=== PATIENT | male | born 1980 | race Caucasian/White ===

== ENCOUNTER 2022-09-22 07:32 | Emergency (ER) | payer OTHER, MEDICAID, SELFPAY ==
[2022-09-22 07:35] VITALS: BP 189/123; PULSE 89; O2SAT 92
[2022-09-22 07:37] VITALS: BP 189/123; PULSE 88; RESP 16; TEMP 36.7; O2SAT 93; BMI 19.1
--- NOTE | 2022-09-22 07:39 | DI.RAD.S_ITS ---
PROCEDURE: XR CHEST 1V INDICATIONS: SOB TECHNIQUE: One view of the chest was acquired. COMPARISON: None. FINDINGS: Surgical changes and devices: None. Lungs and pleura: Lungs are clear. No pleural effusions or pneumothorax. Mediastinum: Mediastinal contours appear normal. Heart size is normal. Bones and chest wall: No suspicious bony lesions. Overlying soft tissues appear unremarkable. IMPRESSION: No acute cardiopulmonary pathology. Dictated by: Víctor Griffin M.D. on 09/22/2022 at 8:07 Approved by: Víctor Griffin M.D. on 09/22/2022 at 8:08
--- NOTE | 2022-09-22 07:43 | ED_ITS ---
HPI - General Adult General Chief complaint: Shortness of Breath/Dyspnea Stated complaint: trouble breathing Time Seen by Provider: 09/22/22 07:35 Source: patient Mode of arrival: EMS Limitations: no limitations History of Present Illness HPI narrative: Patient is a 42-year-old male who was sent over for evaluation of shortness of breath. Patient states that he is had shortness of breath for greater than 1 month although he does feel like it has been worsening. No cough. No fevers. No chest pain. No prior underlying lung pathology diagnosis. He stated that he went to the methadone clinic in order to get checked in when he mentioned the shortness of breath and that is why he was sent here. He did smoke fentanyl this morning. Related Data Previous Rx's Medication Instructions Recorded albuterol sulfate 90 mcg/actuation 2 puff inhalation Q4-6H PRN 09/22/22 aerosol inhaler (Proventil HFA) shortness of breath or wheezing #8.5 grams Allergies Allergy/AdvReac Type Severity Reaction Status Date / Time No Known Drug Allergies Allergy Verified 09/22/22 07:41 Review of Systems Constitutional Constitutional: Reports system reviewed and no additional complaints, except as documented ENT Ears, Nose, Mouth, and Throat: Reports system reviewed and no additional complaints, except as documented Cardiovascular Cardiovascular: Reports system reviewed and no additional complaints, except as documented Respiratory Respiratory: Reports system reviewed and no additional complaints, except as documented Integumentary/Breasts Skin/Breast: Reports system reviewed and no additional complaints, except as documented Hematologic/Lymphatic On Anticoagulants: No Patient History Social History Smoking Status: Current every day smoker Smoking Status: Current every day smoker tobacco type: cigarettes Substance Use Type: opiates Exam Initial Vital Signs Initial Vital Signs: Vital Signs Temperature 98.1 F 09/22/22 07:37 Pulse Rate 88 09/22/22 07:37 Respiratory Rate 16 09/22/22 07:37 Blood Pressure 189/123 H 09/22/22 07:37 Pulse Oximetry 93 09/22/22 07:37 Oxygen Delivery Method Room Air 09/22/22 07:37 Const General: cooperative and healthy appearing [facility] Head: normal to inspection and normocephalic Resp Other: Patient is not tachypneic. Does have bilateral wheezing. No rhonchi. Cardio Rate: regular rate Rhythm: regular rhythm Neuro General: patient alert, patient awake and patient oriented x3 Extrem General: normal to inspection Course Orders Ordered: ED Orders 09/22/22 07:39 XR chest 1V Stat Discontinued Medications Albuterol (Albuterol 2.5 Mg/3 Ml Neb (Adult)) 2.5 mg INH NOW ONE Stop: 09/22/22 07:40 Last Admin: 09/22/22 07:46 Dose: 2.5 mg Documented By: OLIVIA Vital Signs Vital signs: Vital Signs - 8 hr 09/22/22 07:37 Temperature 98.1 F Pulse Rate 88 Respiratory Rate 16 Blood Pressure 189/123 H Pulse Oximetry 93 Oxygen Delivery Method Room Air Medical Decision Making Imaging Data Chest x-ray: Radiologist's Impression: PROCEDURE:? XR CHEST 1V ? INDICATIONS:? SOB ? TECHNIQUE:? One view of the chest was acquired.? ? COMPARISON:? None. ? FINDINGS:? ? Surgical changes and devices:? None.? ? Lungs and pleura:? Lungs are clear.? No pleural effusions or pneumothorax.? ? Mediastinum:? Mediastinal contours appear normal.? Heart size is normal.? ? Bones and chest wall:? No suspicious bony lesions.? Overlying soft tissues appear unremarkable.? ? IMPRESSION:? No acute cardiopulmonary pathology. MDM Narrative Medical decision making narrative: Chest x-ray shows no signs of pneumonia. He was wheezing upon arrival. After nebulizer treatment he states he feels much better and his lungs are clear. Patient is not hypoxic. Not febrile. No indication for antibiotics. Plan will be is to be prescribed albuterol for him. It was sent to the pharmacy of his choice. Patient was also hypertensive this improved without specific intervention. He will need to follow up with his primary doctor for this. Discharge Plan Departure Patient Disposition: Home Clinical Impression: Wheezing, Shortness of Breath, Hypertension Instructions: DI for Shortness of Breath Activity Restrictions/Additional Instructions: A prescription for an albuterol inhaler was sent to the [facility] in [place]. Please use it as directed. You were also given an inhaler here in the emergency department. Your blood pressure was also elevated. I recommend that you follow-up with your primary doctor regarding this. Prescriptions: New albuterol sulfate [Proventil HFA] 90 mcg/actuation HFA aerosol inhaler 2 puff inhalation Q4-6H PRN (Reason: shortness of breath or wheezing) Qty: 8.5 2RF Stand Alone Forms: Patient Portal/API
[2022-09-22] MEDS: ALBUTEROL 2.5 MG/3 ML NEB (ADULT) INH (07:46)
[2022-09-22 08:00] VITALS: PULSE 94; O2SAT 96
[2022-09-22 08:01] VITALS: BP 165/126; PULSE 96; O2SAT 96
[2022-09-22 08:30] VITALS: BP 165/108; PULSE 90; O2SAT 88
[2022-09-22] MEDS: ALBUTEROL HFA MDI 60 PUFF/8 GM INHALER INH (08:46)
[2022-09-22 08:47] VITALS: O2SAT 91
--- NOTE | 2022-09-22 09:07 | PC.NURSE ---
spacer and inhaler teaching done by this RN. Pt with teachback and tolerated well. [facility] contacted and on the way to pick pt up for transport to their facility
== END 2022-09-22 09:09 | disposition home or self-care (01) ==
LOC: ED 08:53
PROVIDERS: Emergency Provider Emergency Medicine; PCP Family Medicine
DX: R06.02 Shortness of breath (principal); R06.2 Wheezing; I10 Essential (primary) hypertension; F17.200 Nicotine dependence, unspecified, uncomplicated
CPT/HCPCS: 71045; 99283; A9270; J7613